=== PATIENT | female | born 1935 | race Caucasian/White ===

== ENCOUNTER 2018-02-19 10:48 | Emergency (ER) | payer MEDICARE ==
[~2018-02-19] VITALS: Ht 162.6 cm; Wt 47.0 kg
[~2018-02-19 10:48] MED LIST: ASPI-515 PO; ASPI325T17 PO; ATOR20TA PO; CETI10TA24 PO; CHOL200074 PO; CLON0.5T20 PO; CYAN1TAB29 PO; LINA145C PO; MAGN64TA7 PO; MIDO5TAB PO; MULT-717 PO; OMEG1CAP34 PO; OMEP40CA6 PO; SERT100T PO; TIOT18CA INH; UMEC1DIS INH; potassium PO
[2018-02-19 12:03] LABS: BASOPHILS # (AUTO) 0.04 x10^3/uL (0-0.1); BASOPHILS % (AUTO) 1 % (0-1); EOSINOPHILS # (AUTO) 0.08 x10^3/uL (0-0.4); EOSINOPHILS % (AUTO) 1 % (1-7); LYMPHOCYTES # (AUTO) 1.01 x10^3/uL (1-3.4); LYMPHOCYTES % (AUTO) 13 % (22-44); MD NO; MEAN CORPUSCULAR HGB CONC 33.4 g/dL (32.4-35.8); MEAN CORPUSCULAR VOLUME 101.7 fL (80-100); MEAN PLATELET VOLUME 7.7 fL (7.4-10.4); MONOCYTES # (AUTO) 0.63 x10^3/uL (0.2-0.8); MONOCYTES % (AUTO) 8 % (2-9); NEUTROPHILS % (AUTO) 77 % (42-75); PLATELET COUNT 493 x10^3/uL (130-400); RED BLOOD COUNT 3.83 x10^6/uL (3.82-5.3); RED CELL DISTRIBUTION WIDTH 14.5 % (9.6-15.2)
[2018-02-19 12:07] VITALS: BP 131/95
[2018-02-19 12:07] LABS: MICROSCOPIC NOT IND
[2018-02-19 12:12] LABS: CULTURE INDICATED? NO
[2018-02-19 12:14] LABS: ALANINE AMINOTRANSFERASE 25 U/L (12-78); ALBUMIN 3.7 g/dL (3.4-5.0); ANION GAP 7 mmol/L (5-15); CHLORIDE 105 mmol/L (98-107); CREATININE 0.88 mg/dL (0.55-1.02)
[2018-02-19 12:17] LABS: ALKALINE PHOSPHATASE 72 U/L (45-117); BILIRUBIN,TOTAL 0.4 mg/dL (0.2-1.0)
[2018-02-19] MEDS ORDERED: ACETAMINOPHEN 325 MG TABLET PO ONE (14:00)
== END 2018-02-19 14:07 | disposition home or self-care (01) ==
LOC: ED 12:16
DX: S09.8XXA Other specified injuries of head, initial encounter (principal); E78.00 Pure hypercholesterolemia, unspecified; J44.9 Chronic obstructive pulmonary disease, unspecified; I10 Essential (primary) hypertension; M81.0 Age-related osteoporosis without current pathological fracture; Z87.891 Personal history of nicotine dependence; W01.0XXA Fall on same level from slipping, tripping and stumbling without subsequent striking against object, initial encounter; Y93.89 Activity, other specified; Y92.89 Other specified places as the place of occurrence of the external cause; Y99.8 Other external cause status
CPT/HCPCS: 36415; 70450; 80053; 81003; 85025; 93005; 99285

== ENCOUNTER → 2018-03-29 | Outpatient (CLI) | payer MEDICARE | END | disposition home or self-care (01) | LOC: CVU 09:30 | PROVIDERS: ATTEND Surgery Vascular Surgery | DX: I65.23 Occlusion and stenosis of bilateral carotid arteries (principal); E78.5 Hyperlipidemia, unspecified; Z87.891 Personal history of nicotine dependence | CPT/HCPCS: 93880 ==

== ENCOUNTER → 2018-08-15 | Outpatient (CLI) | payer MEDICARE ==
[~2018-08-15] MED LIST changes: -MIDO5TAB PO; +MIDO5TAB9 PO
== END | disposition home or self-care (01) ==
LOC: RAD 08:40
PROVIDERS: ATTEND Otolaryngology
DX: R13.14 Dysphagia, pharyngoesophageal phase (principal); R05 Cough
CPT/HCPCS: 74220

== ENCOUNTER 2020-02-29 15:05 | Emergency (ER) | payer MEDICARE ==
[~2020-02-29] VITALS: Ht 160 cm; Wt 48.0 kg
[~2020-02-29 15:05] MED LIST changes: -CETI10TA24 PO; +CETI10TA26 PO; +OMEP40CA42 PO; -OMEP40CA6 PO
--- NOTE | 2020-02-29 15:19 | NUR ---
BIBA FROM HOME FOR RIGHT FLANK AND UPPER BACK PAIN BETWEEN SHOULDER BLADES X2 DAYS RADIATES TO UPPER ABD. PT REPORTS HX OF SPINAL STENOSIS AND CHRONIC BACK PAIN. PLACED ON VITAL SIGNS MONITORS AND CALL LIGHT WITHIN REACH.
[2020-02-29] MEDS ORDERED: KETOROLAC 30 MG/1 ML ONE (15:24)
[2020-02-29] MEDS ORDERED: MONT10TA11 PO (15:24)
[2020-02-29] MEDS ORDERED: HYDROcodone/APAP 10/325 MG TABLET ONE (15:24)
[2020-02-29] MEDS ORDERED: SODIUM CHLORIDE FLUSH 10ML SYR IVF ONE (16:00)
[2020-02-29] MEDS ORDERED: ONDANSETRON 2MG/ML, 2ML IVPush ONE (16:00)
[2020-02-29] MEDS ORDERED: MORPHINE SULFATE 4 MG/ML, 1ML IVPush PRN (16:00)
--- NOTE | 2020-02-29 16:22 | NUR ---
PT DECLINES PAIN MEDICATION AT THIS TIME.
[2020-02-29 16:26] LABS: BASOPHILS # (AUTO) 0.05 x10^3/uL (0-0.1); BASOPHILS % (AUTO) 1 % (0-1); EOSINOPHILS # (AUTO) 0.26 x10^3/uL (0-0.4); EOSINOPHILS % (AUTO) 4 % (1-7); LYMPHOCYTES # (AUTO) 1.29 x10^3/uL (1-3.4); LYMPHOCYTES % (AUTO) 21 % (22-44); MD NO; MEAN CORPUSCULAR HEMOGLOBIN 31.4 pg (27.0-34.8); MEAN CORPUSCULAR HGB CONC 31.6 g/dL (32.4-35.8); MEAN CORPUSCULAR VOLUME 99.5 fL (80-100); MEAN PLATELET VOLUME 7.9 fL (7.4-10.4); MONOCYTES # (AUTO) 0.59 x10^3/uL (0.2-0.8); MONOCYTES % (AUTO) 10 % (2-9); NEUTROPHILS # (AUTO) 4.03 x10^3/uL (1.8-6.8); NEUTROPHILS % (AUTO) 65 % (42-75); PLATELET COUNT 319 x10^3/uL (130-400); RED BLOOD COUNT 3.72 x10^6/uL (3.82-5.3); RED CELL DISTRIBUTION WIDTH 15.7 % (9.6-15.2)
[2020-02-29 16:37] LABS: ALANINE AMINOTRANSFERASE 20 U/L (12-78); ALBUMIN 3.5 g/dL (3.4-5.0); ANION GAP 7 mmol/L (5-15); CALCIUM 8.4 mg/dL (8.5-10.1); CHLORIDE 113 mmol/L (98-107); CREATININE 0.93 mg/dL (0.55-1.02)
[2020-02-29 16:41] LABS: ALKALINE PHOSPHATASE 74 U/L (45-117); BILIRUBIN,TOTAL 0.3 mg/dL (0.2-1.0); TOTAL PROTEIN 6.7 g/dL (6.4-8.2); TROPONIN I < 0.015 ng/mL (0.000-0.045)
--- NOTE | 2020-02-29 17:33 | NUR ---
PT RESTING ON [place] IN NAD, VSS. DECLINES PAIN MEDICATION AT THIS TIME.
[2020-02-29 18:36] LABS: MICROSCOPIC AUTO
--- NOTE | 2020-02-29 18:36 | NUR ---
PT TRANSPORTED TO CT.
[2020-02-29 19:14] VITALS: BP 140/93
[2020-02-29] MEDS ORDERED: ONDANSETRON 2MG/ML, 2ML ONE (19:17)
[2020-02-29] MEDS ORDERED: MORPHINE SULFATE 4 MG/ML, 1ML ONE (19:17)
--- NOTE | 2020-02-29 19:30 | NUR ---
PT REQUESTING PAIN MED AT THIS TIME RATES PAIN 8/10, MEDICATED PER MAR. VSS.
[2020-02-29] MEDS ORDERED: OMNIPAQUE 350 MG/ML, 100ML BOTTLE ONE (21:12)
== END 2020-02-29 20:13 | disposition home or self-care (01) ==
LOC: ED 15:43
DX: S32.011A Stable burst fracture of first lumbar vertebra, initial encounter for closed fracture (principal); M51.34 Other intervertebral disc degeneration, thoracic region; K59.00 Constipation, unspecified; R07.9 Chest pain, unspecified; J44.9 Chronic obstructive pulmonary disease, unspecified; I10 Essential (primary) hypertension; E78.00 Pure hypercholesterolemia, unspecified; Z87.891 Personal history of nicotine dependence; X58.XXXA Exposure to other specified factors, initial encounter; Y93.89 Activity, other specified; Y92.89 Other specified places as the place of occurrence of the external cause; Y99.8 Other external cause status
CPT/HCPCS: 36415; 71045; 74177; 80053; 81001; 84484; 85025; 87086; 93005; 96374; 96375; 99285; J2270; J2405; Q9967